=== PATIENT | female | born 1965 | race African-American/Black ===

== ENCOUNTER 2016-08-08 18:50 | Emergency (ER) | payer OTHER ==
[~2016-08-08 18:50] MED LIST: AMOXICILLIN500 M1 PO; AUGMENTIN PO; FLAGYL PO; HYCODAN60 ML 5MG/ PO; IRON1 TA1 PO; MEDROL DOSEPAK4 MG PO; MULTI-VITAMIN1 TAB; ULTRAM PO; VIBRAMYCIN100 M1 PO; VICODIN 5/500 T1 TAB PO; VITAMIN C500 M2 PO
== END 2016-08-08 22:22 | disposition home or self-care (01) ==
LOC: CED 18:50 → CFTX 18:50
DX: L02.01 Cutaneous abscess of face (principal); D64.9 Anemia, unspecified; F17.210 Nicotine dependence, cigarettes, uncomplicated; Z98.51 Tubal ligation status; Z90.710 Acquired absence of both cervix and uterus
CPT/HCPCS: 10160; 87070; 87205; 99283